=== PATIENT | female | born 1945 | race Caucasian/White ===

== ENCOUNTER 2016-10-27 09:44 | Emergency (ER) | payer OTHER ==
[~2016-10-27] VITALS: Ht 162.6 cm; Wt 71.7 kg
[2016-10-27 09:44] VITALS: BP_SYST 125
[2016-10-27 10:35] LABS: BASOPHILS % (AUTO) 0.6 % (0.0-2.0); EOSINOPHILS # (AUTO) 0.2 K/uL (0.0-0.4); EOSINOPHILS % (AUTO) 2.7 % (0.0-4.0); LYMPHOCYTES # (AUTO) 1.3 K/uL (1.0-5.5); LYMPHOCYTES % (AUTO) 23.2 % (20.5-51.5); MEAN CORPUSCULAR HEMOGLOBIN 31 pg (27-31); MEAN CORPUSCULAR HGB CONC 33 % (32-36); MEAN CORPUSCULAR VOLUME 94 fL (79.0-98.0); MONOCYTES # (AUTO) 0.4 K/uL (0.0-1.0); MONOCYTES % (AUTO) 7.8 % (1.7-9.3); NEUTROPHILS # (AUTO) 3.7 K/uL (1.8-7.7); NEUTROPHILS % (AUTO) 65.7 % (40.0-70.0); PLATELET COUNT (AUTO) 181 K/uL (130-430); RED BLOOD CELL COUNT(AUTO) 4.15 MIL/uL (4.2-6.2); RED CELL DISTRIBUTION WIDTH 13.2 % (9.0-15.0); WHITE BLOOD COUNT (AUTO) 5.6 K/uL (4.8-10.8)
[2016-10-27 10:45] LABS: ANION GAP 7 (5-15); CHLORIDE 106 mmol/L (98-107); CREATININE 0.86 mg/dL (0.55-1.30); GLUCOSE 124 mg/dL (70-99); POTASSIUM 3.9 mmol/L (3.5-5.1); SODIUM SERUM 139 mmol/L (136-145); UREA NITROGEN, BLOOD 13 mg/dL (8-21)
[2016-10-27 10:48] LABS: INR 1.1 (0.8-1.2); PROTHROMBIN TIME 12.2 SECS (9.5-12.5)
[2016-10-27 10:49] LABS: ALANINE AMINOTRANSFERASE 28 U/L (12-78); ALBUMIN 3.7 g/dL (3.4-4.8); ASPARTATE AMINOTRANSFERASE 19 U/L (10-37); TOTAL BILIRUBIN 0.4 mg/dL (0.0-1.0); TOTAL PROTEIN, SERUM 6.7 g/dL (6.4-8.3)
[2016-10-27] MEDS ORDERED: METH2.5T PO (14:16)
[2016-10-27] MEDS ORDERED: DILT240C2 PO (14:16)
[2016-10-27] MEDS ORDERED: MAGN400T39 PO (14:16)
[2016-10-27] MEDS ORDERED: MULT-1089 PO (14:16)
[2016-10-27] MEDS ORDERED: RIVA20TA PO (14:16)
[2016-10-27] MEDS ORDERED: CYAN250014 PO (14:16)
[2016-10-27] MEDS ORDERED: FLEC100T2 PO (14:16)
[2016-10-27] MEDS ORDERED: HYDR200T38 PO (14:16)
[2016-10-27] MEDS ORDERED: PRAV10TA37 PO (14:16)
[2016-10-27] MEDS ORDERED: ASCO500T20 PO (14:16)
[2016-10-27] MEDS ORDERED: VALA500T33 PO (14:16)
[2016-10-27] MEDS ORDERED: FOLI-43 PO (14:16)
[2016-10-27] MEDS ORDERED: OMEP-130 PO (14:16)
[2016-10-27] MEDS ORDERED: NALT50TA PO (14:16)
[2016-10-27] MEDS ORDERED: CHOL200035 PO (14:16)
[2016-10-27 14:49] VITALS: BP_SYST 121
== END 2016-10-27 14:43 | disposition home or self-care (01) ==
LOC: SED 09:44
DX: M79.89 Other specified soft tissue disorders (principal); I48.91 Unspecified atrial fibrillation; Z88.6 Allergy status to analgesic agent; Z90.710 Acquired absence of both cervix and uterus; Z79.899 Other long term (current) drug therapy
CPT/HCPCS: 36415; 73720; 80053; 85025; 85379; 85610-TC; 85730-TC; 93005; 93971; 99285